=== PATIENT | female | born 1935 | race Caucasian/White ===

== ENCOUNTER 2021-12-29 21:26 | Inpatient (IN) | payer OTHER ==
[2021-12-29] MEDS ORDERED: DIPHTH,PERTUSS(ACELL),TET 0.5 ML DISP.SYRIN IM ONE ×2 (21:43→22:45)
[2021-12-29 22:00] VITALS: BMI 25.7
[2021-12-29] MEDS ORDERED: LIDOCAINE HCL 1%, 10 MG/ML (50 mL VIAL) SQ ONE (22:43)
[2021-12-29] MEDS ORDERED: LIDOCAINE HCL/PF 1% SDV 5ML VIAL ONE (22:45)
[2021-12-30 00:34] LABS: BASO % 0.6 % (0-2.0); HEMATOCRIT 36.7 % (32.4-45.2); HEMOGLOBIN 12.1 GM/dL (10.7-15.3); LYMPH % 25.1 % (8-40); MCH 27.2 pg (25.7-33.7); MCHC 32.8 g/dl (32.0-36.0); MEAN CELL VOLUME 82.8 fl (80-96); MEAN PLT VOLUME 9.1 fl (7.5-11.1); MONO % 10.2 % (3.8-10.2); NEUT % 61.1 % (42.8-82.8); PLATELET COUNT 254 10^3/uL (134-434); RBC 4.44 M/mm3 (3.60-5.2); RDW 15.1 % (11.6-15.6)
[2021-12-30 00:58] LABS: ALBUMIN 3.3 g/dl (3.4-5.0); BLOOD UREA NITROGEN 13.9 mg/dL (7-18); CALCIUM 9.2 mg/dL (8.5-10.1)
[2021-12-30 01:01] LABS: CREATININE 0.6 mg/dL (0.55-1.3)
[2021-12-30 01:04] LABS: BILIRUBIN,TOTAL 0.4 mg/dL (0.2-1); TOT PROT 7.2 g/dl (6.4-8.2)
[2021-12-30 01:06] LABS: N-TERMINAL BNP 136.9 pg/ml (5-450)
[2021-12-30] MEDS ORDERED: HALOPERIDOL LACTATE 5 MG/ML ONE (02:03)
[2021-12-30] MEDS ORDERED: LORazepam 2 MG/ML SDV VIAL IM ONE (03:54)
[2021-12-30 04:02] LABS: EPI CELLS 2 /uL (0-25.1); HYALINE CASTS 3 /uL (0-3.1); PH,URINE 6.5 (5.0-8.0); URINE APPEARANCE CLEAR; URINE BACTERIA 1876 /uL (0-1359); URINE BILIRUBIN NEGATIVE (NEGATIVE); URINE COLOR YELLOW; URINE GLUCOSE (UA) NEGATIVE (NEGATIVE); URINE KETONE NEGATIVE (NEGATIVE); URINE LEUK ESTERASE 3+ (NEGATIVE); URINE NITRITE POSITIVE (NEGATIVE); URINE PROTEIN NEGATIVE (NEGATIVE); URINE RBC 158 /uL (0-23.9); URINE UROBILINOGEN 0.2 mg/dL (0.2-1.0); URINE WBC 466 /uL (0-25.8)
[2021-12-30] MEDS ORDERED: CEFTRIAXONE 1,000 MG in DEXTROSE 5%-WATER - 50 ML IVPB ONE (04:08)
[2021-12-30] MEDS ORDERED: CEFTRIAXONE 1 GM/50 ML BAG ONE (06:21)
[2021-12-30] MEDS ORDERED: HALOPERIDOL LACTATE 5 MG/ML IM ONE (06:36)
[2021-12-30 07:38] LABS: BASO % 0.5 % (0-2.0); HEMATOCRIT 39.4 % (32.4-45.2); LYMPH % 18.2 % (8-40); MCH 27.4 pg (25.7-33.7); MEAN CELL VOLUME 83.2 fl (80-96); MEAN PLT VOLUME 9.5 fl (7.5-11.1); MONO % 9.8 % (3.8-10.2); NEUT % 70.5 % (42.8-82.8); PLATELET COUNT 254 10^3/uL (134-434); RBC 4.74 M/mm3 (3.60-5.2); WHITE BLOOD COUNT 9.3 K/mm3 (4.0-10.0)
[2021-12-30 07:49] LABS: CALCIUM 9.9 mg/dL (8.5-10.1)
[2021-12-30 07:50] LABS: BLOOD UREA NITROGEN 13.1 mg/dL (7-18); MAGNESIUM 2.2 mg/dL (1.8-2.4)
[2021-12-30 07:52] LABS: CREATININE 0.7 mg/dL (0.55-1.3)
[2021-12-30 07:57] LABS: N-TERMINAL BNP 142.5 pg/ml (5-450)
[2021-12-30] MEDS ORDERED: clonazePAM 0.5 MG TABLET ONE (10:09)
[2021-12-30] MEDS ORDERED: ASPIRIN 81 MG CHEWABLE TABLETS ONE (10:09)
[2021-12-30] MEDS: clonazePAM 0.5 MG TABLET PO SCH ×3 (11:07→21:18)
[2021-12-30] MEDS: CYANOCOBALAMIN (VITAMIN B-12) 100 MCG TABLET PO SCH (11:07)
[2021-12-30] MEDS: ASPIRIN 81 MG CHEWABLE TABLETS PO SCH (11:07)
[2021-12-30] MEDS: BACITRACIN 0.9 GM PACKET TP SCH ×2 (11:07→22:58)
[2021-12-30] MEDS: ATORVASTATIN CA 10 MG TABLET (FP) PO SCH (22:58)
[2021-12-30] MEDS ORDERED: LORazepam 2 MG/ML SDV VIAL IVPUSH ONE (23:02)
[2021-12-31] MEDS ORDERED: cefTRIAXone SODIUM 1 GM VIAL ONE (10:40)
[2021-12-31] MEDS ORDERED: DEXTROSE 5%-WATER - 50 ML IVPB ONE (10:40)
[2021-12-31] MEDS: clonazePAM 0.5 MG TABLET PO SCH ×2 (10:45→21:59)
[2021-12-31] MEDS: ASPIRIN 81 MG CHEWABLE TABLETS PO SCH (10:45)
[2021-12-31] MEDS: BACITRACIN 15 GM TUBE TOPICAL OINTMENT TP SCH ×2 (10:45→21:59)
[2021-12-31] MEDS: CEFTRIAXONE 1 GM in DEXTROSE 5%-WATER - 50 ML IVPB SCH (10:46)
[2021-12-31] MEDS: ENOXAPARIN NA (PORCINE) 40 MG/0.4 ML DISP.SYRIN SQ SCH (10:46)
[2021-12-31] MEDS: CYANOCOBALAMIN (VITAMIN B-12) 100 MCG TABLET PO SCH (10:49)
[2021-12-31] MEDS: ATORVASTATIN CA 10 MG TABLET (FP) PO SCH (21:59)
[2022-01-01] MEDS ORDERED: DEXTROSE 5%-WATER - 50 ML IVPB ONE (09:12)
[2022-01-01] MEDS ORDERED: cefTRIAXone SODIUM 1 GM VIAL ONE (09:12)
[2022-01-01] MEDS: CEFTRIAXONE 1 GM in DEXTROSE 5%-WATER - 50 ML IVPB SCH (09:29)
[2022-01-01] MEDS: ENOXAPARIN NA (PORCINE) 40 MG/0.4 ML DISP.SYRIN SQ SCH (09:30)
[2022-01-01] MEDS: ASPIRIN 81 MG CHEWABLE TABLETS PO SCH (09:31)
[2022-01-01] MEDS: CYANOCOBALAMIN (VITAMIN B-12) 100 MCG TABLET PO SCH (09:31)
[2022-01-01] MEDS: BACITRACIN 15 GM TUBE TOPICAL OINTMENT TP SCH ×2 (09:31→22:45)
[2022-01-01] MEDS: clonazePAM 0.5 MG TABLET PO SCH (09:31)
[2022-01-01] MEDS: OLANZapine 5 MG TABLET PO SCH (22:45)
[2022-01-01] MEDS: ATORVASTATIN CA 10 MG TABLET (FP) PO SCH (22:45)
[2022-01-02] MEDS ORDERED: cefTRIAXone SODIUM 1 GM VIAL ONE (10:16)
[2022-01-02] MEDS ORDERED: DEXTROSE 5%-WATER - 50 ML IVPB ONE (10:16)
[2022-01-02] MEDS: ENOXAPARIN NA (PORCINE) 40 MG/0.4 ML DISP.SYRIN SQ SCH (10:21)
[2022-01-02] MEDS: OLANZapine 5 MG TABLET PO SCH ×2 (10:21→22:01)
[2022-01-02] MEDS: ASPIRIN 81 MG CHEWABLE TABLETS PO SCH (10:21)
[2022-01-02] MEDS: CEFTRIAXONE 1 GM in DEXTROSE 5%-WATER - 50 ML IVPB SCH (10:21)
[2022-01-02] MEDS: BACITRACIN 15 GM TUBE TOPICAL OINTMENT TP SCH ×2 (10:21→22:01)
[2022-01-02] MEDS ORDERED: METOPROLOL TARTRATE 5 MG/5 ML VIAL IVPUSH ONE (17:45)
[2022-01-02] MEDS: CYANOCOBALAMIN (VITAMIN B-12) 100 MCG TABLET PO SCH (17:59)
[2022-01-02] MEDS: ATORVASTATIN CA 10 MG TABLET (FP) PO SCH (22:01)
[2022-01-03] MEDS ORDERED: cefTRIAXone SODIUM 1 GM VIAL ONE (09:50)
[2022-01-03] MEDS ORDERED: DEXTROSE 5%-WATER - 50 ML IVPB ONE (09:51)
[2022-01-03] MEDS ORDERED: METOPROLOL TARTRATE 25 MG TABLET (FP) PO SCH (10:00)
[2022-01-03] MEDS: ENOXAPARIN NA (PORCINE) 40 MG/0.4 ML DISP.SYRIN SQ SCH (10:46)
[2022-01-03] MEDS: BACITRACIN 15 GM TUBE TOPICAL OINTMENT TP SCH ×2 (10:47→21:17)
[2022-01-03] MEDS: ASPIRIN 81 MG CHEWABLE TABLETS PO SCH (10:47)
[2022-01-03] MEDS: OLANZapine 5 MG TABLET PO SCH ×2 (10:48→21:12)
[2022-01-03] MEDS: CYANOCOBALAMIN (VITAMIN B-12) 100 MCG TABLET PO SCH (10:48)
[2022-01-03] MEDS: CEFTRIAXONE 1 GM in DEXTROSE 5%-WATER - 50 ML IVPB SCH (10:49)
[2022-01-03] MEDS: METOPROLOL TARTRATE 5 MG/5 ML VIAL IVPUSH PRN (15:03)
[2022-01-03] MEDS ORDERED: ADENOSINE 6 MG/2 ML VIAL IVPUSH ONE (15:37)
[2022-01-03] MEDS: METOPROLOL TARTRATE 50 MG TABLET (FP) PO SCH (21:12)
[2022-01-03] MEDS: ATORVASTATIN CA 10 MG TABLET (FP) PO SCH (21:12)
[2022-01-04 08:07] LABS: ALBUMIN 3.1 g/dl (3.4-5.0); CALCIUM 9.1 mg/dL (8.5-10.1); MAGNESIUM 2.5 mg/dL (1.8-2.4)
[2022-01-04 08:08] LABS: BLOOD UREA NITROGEN 25.7 mg/dL (7-18)
[2022-01-04 08:10] LABS: CREATININE 0.6 mg/dL (0.55-1.3)
[2022-01-04 08:12] LABS: BILIRUBIN,TOTAL 0.5 mg/dL (0.2-1); TOT PROT 7.4 g/dl (6.4-8.2)
[2022-01-04 08:17] LABS: BASO % 0.4 % (0-2.0); EOS % 3.8 % (0-4.5); HEMATOCRIT 42.2 % (32.4-45.2); HEMOGLOBIN 13.7 GM/dL (10.7-15.3); LYMPH % 24.5 % (8-40); MCH 27.1 pg (25.7-33.7); MCHC 32.5 g/dl (32.0-36.0); MEAN CELL VOLUME 83.3 fl (80-96); MEAN PLT VOLUME 9.3 fl (7.5-11.1); MONO % 12.9 % (3.8-10.2); NEUT % 58.4 % (42.8-82.8); PLATELET COUNT 285 10^3/uL (134-434); RBC 5.06 M/mm3 (3.60-5.2); RDW 15.1 % (11.6-15.6); WHITE BLOOD COUNT 5.6 K/mm3 (4.0-10.0)
[2022-01-04] MEDS ORDERED: DEXTROSE 5%-WATER - 50 ML IVPB ONE (10:12)
[2022-01-04] MEDS ORDERED: cefTRIAXone SODIUM 1 GM VIAL ONE (10:12)
[2022-01-04] MEDS: ENOXAPARIN NA (PORCINE) 40 MG/0.4 ML DISP.SYRIN SQ SCH (10:43)
[2022-01-04] MEDS: CEFTRIAXONE 1 GM in DEXTROSE 5%-WATER - 50 ML IVPB SCH (10:44)
[2022-01-04] MEDS: OLANZapine 5 MG TABLET PO SCH ×3 (10:45→22:22)
[2022-01-04] MEDS: ASPIRIN 81 MG CHEWABLE TABLETS PO SCH ×2 (10:45→12:56)
[2022-01-04] MEDS: METOPROLOL TARTRATE 50 MG TABLET (FP) PO SCH ×3 (10:48→22:22)
[2022-01-04] MEDS: CYANOCOBALAMIN (VITAMIN B-12) 100 MCG TABLET PO SCH ×2 (10:48→12:56)
[2022-01-04] MEDS: BACITRACIN 15 GM TUBE TOPICAL OINTMENT TP SCH ×2 (10:48→22:22)
[2022-01-04] MEDS: METOPROLOL TARTRATE 5 MG/5 ML VIAL IVPUSH PRN (11:49)
[2022-01-04] MEDS: ATORVASTATIN CA 10 MG TABLET (FP) PO SCH (22:22)
[2022-01-05] MEDS ORDERED: cefTRIAXone SODIUM 1 GM VIAL ONE (09:25)
[2022-01-05] MEDS ORDERED: DEXTROSE 5%-WATER - 50 ML IVPB ONE (09:26)
[2022-01-05] MEDS: CEFTRIAXONE 1 GM in DEXTROSE 5%-WATER - 50 ML IVPB SCH (09:40)
[2022-01-05] MEDS: ASPIRIN 81 MG CHEWABLE TABLETS PO SCH (09:41)
[2022-01-05] MEDS: BACITRACIN 15 GM TUBE TOPICAL OINTMENT TP SCH (09:41)
[2022-01-05] MEDS: METOPROLOL TARTRATE 50 MG TABLET (FP) PO SCH (09:41)
[2022-01-05] MEDS: OLANZapine 5 MG TABLET PO SCH (09:41)
[2022-01-05] MEDS: ENOXAPARIN NA (PORCINE) 40 MG/0.4 ML DISP.SYRIN SQ SCH (09:41)
[2022-01-05] MEDS: CYANOCOBALAMIN (VITAMIN B-12) 100 MCG TABLET PO SCH (09:43)
[2022-01-05 14:42] VITALS: BP 142/86; PULSE 98; TEMP 98.2
== END 2022-01-05 18:00 | DRG 690 ==
LOC: JER 21:26 → JERBED 12-30 04:11 → J4W 12-30 14:18 → OBSVTOIN 01-01 10:31
PROVIDERS: ADMIT Hospitalist; ATTEND Family Medicine
PROC: 0HQ0XZZ Repair Scalp Skin, External Approach (ICD-10-PCS; principal; 2022-01-01)
DX: N39.0 Urinary tract infection, site not specified (principal); I47.1 Supraventricular tachycardia; F03.91 Unspecified dementia, unspecified severity, with behavioral disturbance; F05 Delirium due to known physiological condition; S01.01XA Laceration without foreign body of scalp, initial encounter; D64.9 Anemia, unspecified; E78.5 Hyperlipidemia, unspecified; F41.9 Anxiety disorder, unspecified; D51.9 Vitamin B12 deficiency anemia, unspecified; I45.10 Unspecified right bundle-branch block; W05.0XXA Fall from non-moving wheelchair, initial encounter; Y93.89 Activity, other specified; Y92.129 Unspecified place in nursing home as the place of occurrence of the external cause; Y99.8 Other external cause status; E86.0 Dehydration
CPT/HCPCS: 0241U-QW; 36415; 70450-TC; 71045-TC-FY; 72125-TC; 80048; 80053; 81003; 83735; 83880; 84443; 84484; 85025; 87086; 87186; 90715; 93005; 93010; 93306-TC; 97116-GP; 97162-GP; 99285-25; C9803-CS; G0378; U0003; U0005

== ENCOUNTER 2023-04-27 08:29 | Inpatient (IN) | payer OTHER ==
[2023-04-27 09:53] LABS: BASO % 0.6 % (0-2.0); EOS % 2.9 % (0-4.5); LYMPH % 25.9 % (8-40); MCH 27.4 pg (25.7-33.7); MCHC 33.5 g/dl (32.0-36.0); MEAN CELL VOLUME 81.8 fl (80-96); MONO % 22.1 % (3.8-10.2); NEUT % 48.5 % (42.8-82.8); PLATELET COUNT 254 10^3/uL (134-434); RDW 15.7 % (11.6-15.6); WHITE BLOOD COUNT 6.5 K/mm3 (4.0-10.0)
[2023-04-27 10:14] LABS: ANISOCYTOSIS 0; HELMET CELLS 0; HOWELL-JOLLY BODIES 0; MACROCYTOSIS 0; OVALOCYTE 0; ROULEAU 0; SICKELED CELLS 0; TARGET CELLS 0; TEAR DROP CELLS 0; TOXIC GRANULATION 0
[2023-04-27 10:16] LABS: CHLORIDE 108 mmol/L (98-107); SODIUM 140 mmol/L (136-145)
[2023-04-27 10:18] LABS: ALBUMIN 2.9 g/dl (3.4-5.0); CALCIUM 8.5 mg/dL (8.5-10.1)
[2023-04-27 10:18] LABS: EPI CELLS 10 /uL (0-25.1); HYALINE CASTS 0 /uL (0-3.1); URINE APPEARANCE CLEAR; URINE BACTERIA >9,000 /uL (0-1359); URINE BILIRUBIN NEGATIVE (NEGATIVE); URINE COLOR YELLOW; URINE GLUCOSE (UA) NEGATIVE (NEGATIVE); URINE KETONE NEGATIVE (NEGATIVE); URINE LEUK ESTERASE TRACE (NEGATIVE); URINE NITRITE POSITIVE (NEGATIVE); URINE PROTEIN NEGATIVE (NEGATIVE); URINE RBC 12 /uL (0-23.9); URINE UROBILINOGEN 0.2 mg/dL (0.2-1.0); URINE WBC 13 /uL (0-25.8)
[2023-04-27 10:19] LABS: BLOOD UREA NITROGEN 19.7 mg/dL (7-18); CO2 32 mmol/L (21-32); GLUCOSE,RANDOM 96 mg/dL (74-106)
[2023-04-27 10:21] LABS: CREATININE 0.7 mg/dL (0.55-1.3)
[2023-04-27 10:22] LABS: SGOT/AST 43 U/L (15-37); SGPT/ALT 20 U/L (13-61)
[2023-04-27 10:23] LABS: BILIRUBIN,TOTAL 0.4 mg/dL (0.2-1); TOT PROT 7.2 g/dl (6.4-8.2)
[2023-04-27 10:24] LABS: ALK PHOS 80 U/L (45-117)
[2023-04-27 10:26] LABS: ANION GAP 0 mmol/L (4-13); POTASSIUM 6.4 mmol/L (3.5-5.1)
[2023-04-27] MEDS ORDERED: CEFTRIAXONE 1 GM/50 ML BAG ONE (10:45)
[2023-04-27 11:56] LABS: POTASSIUM 4.3 mmol/L (3.5-5.1)
[2023-04-27 12:00] LABS: CALCIUM 8.7 mg/dL (8.5-10.1)
[2023-04-27 12:01] LABS: BLOOD UREA NITROGEN 17.4 mg/dL (7-18)
[2023-04-27 12:04] LABS: CREATININE 0.7 mg/dL (0.55-1.3)
[2023-04-27] MEDS ORDERED: ACETAMINOPHEN 1000 MG/100 ML BAG IVPB PRN (15:15)
[2023-04-27] MEDS ORDERED: LORazepam 2 MG/ML SDV VIAL IVPUSH ONE (20:59)
[2023-04-27] MEDS: ATORVASTATIN CA 10 MG TABLET (FP) PO SCH (21:36)
[2023-04-27] MEDS: OLANZapine 5 MG TABLET PO SCH (21:36)
[2023-04-27] MEDS ORDERED: LORazepam 2 MG/ML SDV VIAL IVPUSH STA (22:33)
[2023-04-28 00:21] VITALS: BMI 24.8
[2023-04-28 07:26] LABS: BASO % 0.5 % (0-2.0); EOS % 3.6 % (0-4.5); HEMATOCRIT 36.8 % (32.4-45.2); HEMOGLOBIN 11.9 GM/dL (10.7-15.3); LYMPH % 22.9 % (8-40); MCHC 32.4 g/dl (32.0-36.0); MEAN CELL VOLUME 83.3 fl (80-96); MEAN PLT VOLUME 8.9 fl (7.5-11.1); MONO % 16.8 % (3.8-10.2); NEUT % 56.2 % (42.8-82.8); PLATELET COUNT 260 10^3/uL (134-434); RBC 4.42 M/mm3 (3.60-5.2); RDW 15.7 % (11.6-15.6); WHITE BLOOD COUNT 5.9 K/mm3 (4.0-10.0)
[2023-04-28 07:51] LABS: CALCIUM 8.5 mg/dL (8.5-10.1)
[2023-04-28 07:52] LABS: ALBUMIN 2.9 g/dl (3.4-5.0); BLOOD UREA NITROGEN 16.2 mg/dL (7-18)
[2023-04-28 07:56] LABS: CREATININE 0.7 mg/dL (0.55-1.3)
[2023-04-28 07:57] LABS: BILIRUBIN,TOTAL 0.3 mg/dL (0.2-1); TOT PROT 6.8 g/dl (6.4-8.2)
[2023-04-28] MEDS: CEFTRIAXONE 1 GM in DEXTROSE 5%-WATER - 50 ML IVPB SCH (10:19)
[2023-04-28] MEDS: OLANZapine 5 MG TABLET PO SCH ×2 (10:20→21:24)
[2023-04-28] MEDS: ENOXAPARIN NA (PORCINE) 40 MG/0.4 ML DISP.SYRIN SQ SCH (10:20)
[2023-04-28] MEDS: ASPIRIN 81 MG CHEWABLE TABLETS PO SCH (10:20)
[2023-04-28] MEDS: ATORVASTATIN CA 10 MG TABLET (FP) PO SCH (21:24)
[2023-04-29 09:36] VITALS: RESP 18
[2023-04-29] MEDS: CEFTRIAXONE 1 GM in DEXTROSE 5%-WATER - 50 ML IVPB SCH (09:41)
[2023-04-29] MEDS: ASPIRIN 81 MG CHEWABLE TABLETS PO SCH (09:41)
[2023-04-29] MEDS: ENOXAPARIN NA (PORCINE) 40 MG/0.4 ML DISP.SYRIN SQ SCH (09:41)
[2023-04-29] MEDS: OLANZapine 5 MG TABLET PO SCH ×2 (09:42→21:29)
[2023-04-29] MEDS: metoPROLOL SUCCINATE 25 MG TAB.SR.24H (FP) PO SCH (20:28)
[2023-04-29] MEDS: ATORVASTATIN CA 10 MG TABLET (FP) PO SCH (21:29)
[2023-04-30] MEDS: CEFTRIAXONE 1 GM in DEXTROSE 5%-WATER - 50 ML IVPB SCH (10:55)
[2023-04-30] MEDS: ASPIRIN 81 MG CHEWABLE TABLETS PO SCH (10:55)
[2023-04-30] MEDS: OLANZapine 5 MG TABLET PO SCH ×2 (10:55→21:37)
[2023-04-30] MEDS: metoPROLOL SUCCINATE 25 MG TAB.SR.24H (FP) PO SCH (10:55)
[2023-04-30] MEDS: ENOXAPARIN NA (PORCINE) 40 MG/0.4 ML DISP.SYRIN SQ SCH (10:55)
[2023-04-30] MEDS ORDERED: LORazepam 2 MG/ML SDV VIAL IVPUSH ONE (12:33)
[2023-04-30] MEDS: ATORVASTATIN CA 10 MG TABLET (FP) PO SCH (21:37)
[2023-05-01 06:10] VITALS: BP 138/76; PULSE 78; TEMP 98
[2023-05-01] MEDS: OLANZapine 5 MG TABLET PO SCH (09:14)
[2023-05-01] MEDS: metoPROLOL SUCCINATE 25 MG TAB.SR.24H (FP) PO SCH (09:14)
[2023-05-01] MEDS: ENOXAPARIN NA (PORCINE) 40 MG/0.4 ML DISP.SYRIN SQ SCH (09:14)
[2023-05-01] MEDS: ASPIRIN 81 MG CHEWABLE TABLETS PO SCH (09:14)
[2023-05-01] MEDS: CEFTRIAXONE 1 GM in DEXTROSE 5%-WATER - 50 ML IVPB SCH (09:15)
== END 2023-05-01 11:31 | DRG 690 ==
LOC: JER 08:29 → JERBED 12:29 → J4W 19:11
PROVIDERS: ADMIT Family Medicine; ATTEND Family Medicine
DX: N39.0 Urinary tract infection, site not specified (principal); I47.10 Supraventricular tachycardia, unspecified; R55 Syncope and collapse; F03.90 Unspecified dementia, unspecified severity, without behavioral disturbance, psychotic disturbance, mood disturbance, and anxiety; E78.5 Hyperlipidemia, unspecified; S00.83XA Contusion of other part of head, initial encounter; W19.XXXA Unspecified fall, initial encounter; Y93.89 Activity, other specified; Y92.129 Unspecified place in nursing home as the place of occurrence of the external cause; Y99.8 Other external cause status; B96.20 Unspecified Escherichia coli [E. coli] as the cause of diseases classified elsewhere
CPT/HCPCS: 36415; 70450-TC; 71045-TC-FY; 72125-TC; 72170-TC-FY; 80048; 80053; 81003; 84484; 85025; 87086; 87186; 87635; 93005; 93010; 93306-TC; 93880-TC; 97162-GP; 99285-25